=== PATIENT | female | born 1995 | race African-American/Black ===

== ENCOUNTER 2021-01-16 14:31 | Emergency (ER) | payer OTHER, MEDICAID ==
[~2021-01-16] VITALS: Ht 170.2 cm; Wt 68.5 kg
[~2021-01-16 14:31] MED LIST: CONCERTA; HYDROCODON-ACE1 EA11 PO; IBUPROFEN 800800 MG PO
[2021-01-16] MEDS ORDERED: LEVO-T25 MCG PO (14:41)
[2021-01-16] MEDS ORDERED: THYROID MED (14:42)
[2021-01-16 15:04] VITALS: BP 123/87
== END 2021-01-16 15:05 | disposition home or self-care (01) ==
LOC: M.ERS 14:31
DX: O9A.212 Injury, poisoning and certain other consequences of external causes complicating pregnancy, second trimester (principal); S39.012A Strain of muscle, fascia and tendon of lower back, initial encounter; S16.1XXA Strain of muscle, fascia and tendon at neck level, initial encounter; Z79.899 Other long term (current) drug therapy; V49.59XA Passenger injured in collision with other motor vehicles in traffic accident, initial encounter; Y93.89 Activity, other specified; Y92.413 State road as the place of occurrence of the external cause; Y99.9 Unspecified external cause status